=== PATIENT | female | born 1960 | race Two or more races ===

== ENCOUNTER 2020-12-17 12:45 | Inpatient (IN) | payer OTHER ==
[~2020-12-17] VITALS: Ht 162.6 cm; Wt 74.8 kg
== END 2020-12-21 13:37 | disposition home or self-care (01) | DRG 738 ==
LOC: SURH 12-18 07:00 → O/R 12-18 09:31 → SURH 12-18 12:45 → OB/GYN 12-18 17:07
PROVIDERS: ADMIT Specialist; ATTEND Specialist
PROC: 07BC0ZZ Excision of Pelvis Lymphatic, Open Approach (ICD-10-PCS; 2020-12-18)
PROC: 0UT20ZZ Resection of Bilateral Ovaries, Open Approach (ICD-10-PCS; 2020-12-18)
PROC: 0UT70ZZ Resection of Bilateral Fallopian Tubes, Open Approach (ICD-10-PCS; 2020-12-18)
PROC: 0DBW0ZX Excision of Peritoneum, Open Approach, Diagnostic (ICD-10-PCS; 2020-12-18)
PROC: 0DBU0ZZ Excision of Omentum, Open Approach (ICD-10-PCS; 2020-12-18)
PROC: 0UT90ZZ Resection of Uterus, Open Approach (ICD-10-PCS; principal; 2020-12-18 07:00)
DX: C56.2 Malignant neoplasm of left ovary (principal); D25.2 Subserosal leiomyoma of uterus; N72 Inflammatory disease of cervix uteri; N80.0 Endometriosis of uterus; N88.8 Other specified noninflammatory disorders of cervix uteri; N83.291 Other ovarian cyst, right side; N94.89 Other specified conditions associated with female genital organs and menstrual cycle; N83.8 Other noninflammatory disorders of ovary, fallopian tube and broad ligament; R19.00 Intra-abdominal and pelvic swelling, mass and lump, unspecified site